=== PATIENT | female | born 1945 | race Caucasian/White ===

== ENCOUNTER 2019-07-04 10:15 | Outpatient (RCR) | payer OTHER, SELFPAY ==
--- NOTE | 2019-06-25 15:26 | PTOPEVAL ---
PHYSICAL THERAPY EVALUATION AND PLAN OF CARE Thank you for referring this patient to [facility]. I recommend aquatic physical therapy 2x/week for 4 weeks followed by a re-assessment to determine further PT needs and functional progress. Please review, sign, date and return this plan of care MYKEL. I agree with and certify that the following plan of care is medically necessary. Referring Physician Date Evaluation Hx Cancer Yes: COLON CA SURGICAL TREATMENT ONLY Evaluation Information Diagnosis s/p spinal fusion Onset 2012 Additional Evaluation Detail sister Iván is here to translate; also used [employer] sheet finisher Hunter #[id number] Subjective Information Ting is here today Query Text:As Reported By Patient/ several years after spinal Family fusion. She continues experience pain symptoms and the physician does not want to do surgery again so they referred her to PT and ordered a back brace. Her current back brace has a thoracic component, but she c/o today that the brace is too heavy. Also states that this brace does not help with pain. She has a smaller brace that is helpful if she has too much pain. reports pain is all the time when performing any standing activities or work; Pain Assessment Self Report Pain Assessment Spine, Lumbar Reported Pain Level 8 Pain Aggravating Factors Walking Other Pain Aggravating Factors cleaning, cooking Additional Pain Comments some numbness in the back but not down legs Cervical and Lumbar ROM Cervical ROM Cervical Flexion (0-60) 55 Query Text:Active in Degrees Cervical Rotation Right (0-90) 60 Query Text:Active in Degrees Cervical Rotation Left (0-90) 60 Query Text:Active in Degrees Cervical ROM Comments reports neck pain; grabs her upper trapezius when discussing pain; Lumbar ROM Lumbar Flexion (0-90) 30 Query Text:Active in Degrees Lumbar Flexion Active Ankle Query Text:Hands to: Lumbar Comments more flexion through thoracic spoine that lumbar spine ( lumbar spine f
--- NOTE | 2019-07-09 08:15 | PCPTNOTE ---
Patient called & cancelled scheduled appointments keeping re-eval on 07/23/2019 due to COVID-19.
--- NOTE | 2019-07-22 09:31 | PCPTNOTE ---
Patient called & cancelled scheduled appointment on 07/23/2019 due to COVID-19 precautions. She is called to re-schedule at a later date.
--- NOTE | 2019-09-05 11:02 | PCPTNOTE ---
PHYSICAL THERAPY DISCHARGE NOTE Patient:Ting Krishnamurthy Date of :1945 Due to COVID-19 precautions, patient has not returned for any further treatments since 07/04/2019, therefore she will be discharged at this time. Patient?s initial visit was on 06/25/2019. We will be happy to work with Ting again in the future when she is ready to return to physical therapy. The goals have not been assessed. Thank you for referring this patient to [facility]. Please review, sign, date and return this discharge summary MYKEL. I have been updated about the patient's current status and I agree with discharge from the above service at this time. Referring Physician Date
== END 2019-09-06 08:30 | disposition home or self-care (01) ==
LOC: ANHPT 10:15
PROVIDERS: PCP Emergency Medicine
DX: Z47.89 Encounter for other orthopedic aftercare (principal); Z98.1 Arthrodesis status
CPT/HCPCS: 97110; 97163

== ENCOUNTER 2020-03-09 13:00 | Outpatient (RCR) | payer OTHER, SELFPAY ==
--- NOTE | 2020-02-07 13:39 | PTOPEVAL ---
PHYSICAL THERAPY EVALUATION Thank you for referring Ting Rodriguez to [facility].? The patient is scheduled to be seen for aquatic therapy? 2x/week for 4 weeks. Please review, sign, date and return this plan of care MYKEL. I agree with and certify that the following plan of care is medically necessary. Referring Physician Date Attending Provider: Dr. Aron Chin *PT Outpatient Evaluation Start: 02/07/20 12:31 Freq: Status: Active Protocol: Document 02/07/20 12:38 MLV (Rec: 02/07/20 13:27 MLV [id number]) Assessment Status Evaluation Evaluation Information Problem Diagnosis lumbar fusion with radiculopathy Onset 1 year ago Cause no new injury Additional Evaluation Detail The patient has been wearing a back brace for a year in attempt to decrease pain some. Patient feels the water therapy and massage will help her pain. Subjective Information Patient reports having back Query Text:As Reported By Patient/ surgery/fusion 14 years ago. Family The patient continued to have pain but has gotten bad enough that it greatly affects normal activity tolerance such as housework and outdoor yardwork. Previous Treatments Previous Treatments For This Problem doing pool therapy but stopped due to COVID Pain Assessment Timing of Pain Assessment Timing of Pain Assessment Pre-Treatment Pain Scale Pain Scale Used Numeric (1 - 10) Self Report Pain Assessment Lower Back Reported Pain Level 0 Radicular Pain Location left hip Pain Frequency Chronic Greatest Pain Intensity 10 Pain Aggravating Factors Exercise/Activity,Walking, Weight Bearing/Standing Additional Pain Comments oswestry score is 50% disability score Pain Score Pain Score 0: Self Report Interventions Used Pain Relief Interventions Used By Heat,Inactivity/Rest,Lying Patient Supine,Medication Other Alleviating Interventions diclofenac cream Cervical and Lumbar ROM Lumbar ROM Reason Not Measured WFL/Left,WFL/Right Upper Extremity Range of Motion General Upper Extremity Range of Motion Reason Not Measured WFL/Left,WFL/Right Lower Extremity Range of Motion General Lower Extremity Range of Motion Reason Not Measured WFL/Left,WFL/Right Cervical and Lumbar Muscle Testing Luz
--- NOTE | 2020-02-27 14:12 | PCPTNOTE ---
Patient called & cancelled scheduled appointment this date, unable to understand reasoning.
--- NOTE | 2020-03-09 13:42 | PTOPEVAL ---
PHYSICAL THERAPY DISCHARGE SUMMARY Thank you for referring Ting Rodriguez to [facility].? The patient completed 6 visits of therapy for the dx of LBP after lumbar fusion. The patient has peaked with skilled PT needs and discharged this date. Please review, sign, date and return this plan of care MYKEL. I agree with and certify that the following plan of care is medically necessary. Referring Physician Date Attending Provider: Dr. Aron Chin *PT Outpatient Discharge Start: 02/07/20 12:31 Freq: Status: Discharge Protocol: Document 03/09/20 13:00 MLV (Rec: 03/09/20 13:42 MLV [email or web address]) Therapy Assessment Status Discharge Subjective The patient reports minimal change in pain with activity. Patient plans to return to the gym for the pool once it is safer to be out. Pain Assessment Pain Scale Pain Scale Used Numeric (1 - 10) Self Report Pain Assessment Lower Back Reported Pain Level 6 Pain Description Aching,Dull Pain Frequency Chronic Greatest Pain Intensity 10 Pain Aggravating Factors Walking,Weight Bearing/ Standing Other Pain Aggravating Factors housework, cooking Pain Behaviors Guarding,Limping,Moaning Pain Score Pain Score 6: Self Report Interventions Used Interventions Used By Clinicians Education,Exercise Pain Relief Interventions Used By Exercise,Heat,Inactivity/Rest Patient Cervical and Lumbar ROM Lumbar ROM Reason Not Measured WFL/Left,WFL/Right Cervical and Lumbar Muscle Testing Lumbar Strength Lumbar Functional Strength Comments patient is able to tolerate red tband trunk and hip exercises without increased pain Lower Extremity Muscle Strength Testing General Lower Extremity Strength Reason Not Measured WFL/Left,WFL/Right Muscle Length Testing Muscle Length Testing Left Hamstring Length 75 Query Text:(90 - 90 Position) Right Hamstring Length 80 Query Text:(90 - 90 Position) Muscle Length Testing Comments hip IR maite. 15 degrees Gait Assessment Gait Pattern Assessment Other Gait Observations base of support with gait improved approx 25%, and patient arrived to therapy without her TLSO brace on. 2 Minute Walk Total Distance Walked (feet) 270 2 Minute Walk Gait Speed Score (feet/ 2.25 second) General Exercise General Exercises Exercise Description dispensed and completed land Query Text:Record Sets, Reps, exercises with red tband as Resistance, and Position follows: 10 reps for sitting clamshell, thoracic rows,
== END 2020-03-10 11:10 | disposition home or self-care (01) ==
LOC: ANHPT 13:00
PROVIDERS: PCP Internal Medicine
DX: M54.16 Radiculopathy, lumbar region (principal); Z98.1 Arthrodesis status
CPT/HCPCS: 97110; 97113; 97162

== ENCOUNTER 2020-11-28 17:02 | Emergency (ER) | payer OTHER, SELFPAY ==
--- NOTE | ~2020-11-28 | CT_ITS ---
EXAMINATION: CT cervical spine wo con DATE: 11/28/2020 17:27 INDICATION: Syncopal episode with head injury TECHNIQUE: Computed tomography (CT) of the cervical spine was performed without intravenous contrast. Automated exposure control and iterative reconstruction technique were employed. The dose-length pro duct was 151.34 mGy-cm. COMPARISON: Cervical spine radiographs dated 04/30/2019 FINDINGS: Unchanged mild reversal of the normal cervical lordosis. Also unchanged is 1-2 mm retrolisthesis C5 o n C6 and C6 on C7. Vertebral body heights are normal. No fracture. Moderate disc height loss with sev ere uncovertebral osteoarthritis at C3-C4, C4-C5 and C5-C6. Mild disc height loss with additional sev ere uncovertebral osteoarthritis at C6-C7. Disc bulges or posterior disc osteophyte complexes at each of these levels result in multilevel mild central canal stenosis. Severe facet osteoarthritis on the right at C7-T1. Otherwise mild to moderate multilevel bilateral cervical facet osteoarthritis. Multi level mild bilateral cervical neural foraminal stenosis. Multinodular goiter. Cervical soft tissues a re otherwise unremarkable. IMPRESSION: 1. Moderate cervical spondylosis. No acute osseous abnormality. Reviewed, dictated and finalized at location A.
--- NOTE | ~2020-11-28 | CT_ITS ---
EXAMINATION: CTA chest PE protocol DATE: 11/28/2020 20:37 INDICATION: Syncope. TECHNIQUE: Computed tomography (CT) pulmonary angiogram of the chest was performed with 100 mL Omnipa que-350 intravenous contrast. Additional 3D reconstructions utilizing coronal maximum intensity proje ction (MIP) were performed. Automated exposure control and iterative reconstruction technique were em ployed. The dose-length product was 234.18 mGy-cm. COMPARISON: None FINDINGS: Excellent contrast opacification of the pulmonary arteries. There is mild streak artifact from dense contrast in the superior vena cava and right atrium. Mild scattered respiratory motion artifact which does not significantly limit evaluation. No pulmonary embolism. No interval change in a pattern of m ild mosaic attenuation in the dependent lungs with groundglass opacity likely related to expiratory p hase of imaging with scattered regions of more lucent air trapping consistent with small airway disea se. No pneumonia, pulmonary edema, pleural effusion or pneumothorax. Heart size is normal. No pericar dial effusion. Thoracic aorta is normal in caliber with no dissection. Goiter. No pathologically enla rged thoracic lymphadenopathy. Visualized upper abdomen is unremarkable. Mild thoracic spondylosis. IMPRESSION: 1. No pulmonary embolism or other acute cardiopulmonary disease. 2. Goiter. Reviewed, dictated and finalized at location A.
--- NOTE | ~2020-11-28 | CT_ITS ---
EXAMINATION: CT brain wo con DATE: 11/28/2020 17:27 INDICATION: Syncope TECHNIQUE: Computed tomography (CT) of the head was performed without intravenous contrast. Sagittal and coronal reconstructions were performed. The mA was adjusted according to patient size. Iterative reconstruction technique was employed. The dose-length product was 605.33 mGy-cm. COMPARISON: None FINDINGS: Soft tissue swelling with subcutaneous hematoma in the right malar region. No fracture. No acute intr acranial hemorrhage, acute infarction or abnormal extra axial fluid collection. Ventricles are normal and symmetric. No mass/mass effect. Changes of bilateral intraocular lens replacement. The orbits an d mastoid air cells are normal. Mild scattered mucosal thickening in the anterior nasal sinuses. IMPRESSION: 1. Right malar subcutaneous hematoma. No fracture or acute intracranial process. Reviewed, dictated and finalized at location A. IMPRESSION: 1. Right malar subcutaneous hematoma. No fracture or acute intracranial process .
--- NOTE | 2020-11-28 17:12 | ECG_ITS ---
Measurements Intervals [place] Rate: 68 P: 48 NM: 199 QRS: -1 QRSD: 85 T: 27 QT: 395 QTc: 420 Interpretive Statements SINUS RHYTHM WITH SINUS ARRHYTHMIA LOW QRS VOLTAGE IN PRECORDIAL LEADS BASELINE ARTIFACT- II, III, AVR, AVF, V3-V6 BORDERLINE ECG Electronically Signed On 11-28-2020 20:14:37 CDT by Miguel Domínguez D.O.
[2020-11-28 17:16] VITALS: BP 130/58; PULSE 65; RESP 18; TEMP 37.2; O2SAT 95
[2020-11-28 17:19] VITALS: PULSE 61
[2020-11-28 18:03] LABS: Basophils Percent Auto 0.2 % (0.2-1.2); Hematocrit 35.7 % (37.0-47.0); Hemoglobin 11.4 g/dL (12.0-15.0); Immature Granulocyte Absolute 0.08 K/mm3 (0.00-0.031); Immature Granulocyte Percent A 0.7 % (0-0.5); Lymphocytes Absolute Auto 0.92 K/mm3 (0.9-3.2); Lymphocytes Percent Auto 7.6 % (18.3-44.2); Mean Corpuscular HGB Conc 31.9 g/dl (32-36); Mean Corpuscular Hemoglobin 29.5 pg (26-34); Mean Corpuscular Volume 92.2 fl (80-100); Mean Platelet Volume 8.2 fl (7.4-10.4); Monocytes Absolute Auto 0.5 K/mm3 (0.1-0.6); Monocytes Percent Auto 4.2 % (2.6-8.5); Neutrophils Absolute Auto 10.7 K/mm3 (1.3-6.7); Neutrophils Percent Auto 87.3 % (45.5-73.1); Platelet Count Result 258 k/mm3 (150-375); Red Blood Count 3.87 M/mm3 (4.2-5.4); Red Cell Distribution Width 11.7 % (11.5-14.5); White Blood Count 12.2 K/mm3 (4.5-10.0)
[2020-11-28 18:13] LABS: Anion Gap 7 mmol/L (8-16); Blood Urea Nitrogen 22 mg/dL (7-17); Carbon Dioxide 25 mmol/L (22-30); Chloride 101 mmol/L (98-107); Estimated CRCL calculation 41 ml/min; Estimated Glomerular Filt Rate > 60; Glucose 116 mg/dL (65-110); Potassium 3.9 mmol/L (3.4-5.0); Sodium 133 mmol/L (137-145)
[2020-11-28 19:57] LABS: D Dimer 0.54 ug/mL (<0.48)
[2020-11-28 20:14] LABS: Add Urine Microscopic? YES; Appearance Urine Clear (Clear); Bilirubin Urine Negative (Negative); Blood Urine 2+ (Negative); Color Urine Colorless (Yellow); Glucose Urine UA Negative (Negative); Ketones Urine Negative (Negative); Leukocyte Esterase Ur Negative LEU/UL (Negative); Nitrate Urine Negative (Negative); Protein Urine Negative (Negative); Specific Grav Ur 1.005 (1.001-1.035); Urobilinogen Urine Negative mg/dL (<2.0)
--- NOTE | 2020-11-28 20:20 | ED.DIZZY ---
HPI - Dizziness General Chief Complaint: Syncope Stated Complaint: syncopal Time Seen by Provider: 11/28/20 19:10 History of Present Illness HPI Narrative: Patient presents after 2 syncopal events. Patient was sitting on the couch when she all of a sudden passed out. Patient denied any prodrome such as chest pain, shortness of breath, lightheadedness. She denies any like she passed out until her family woke her up and told her. When the family attempt to stand her up after initial syncopal episode she had another one where she struck the ground and injured her head. Family was concerned because she has never done this before so came into the ER for evaluation. Patient reports she has been feeling well over the past couple days denies any fevers, cough, congestion. She currently reports pain on the right side of her face where she struck the ground as well as some mild neck pain. She denies any history of heart failure denies any significant cardiac history Related Data Home Medications Medication Instructions Recorded Confirmed aspirin [Adult Low Dose Aspirin] 81 mg PO DAILY 02/19/19 02/19/19 calcium carbonate-vitamin D3 1 tablet PO DAILY 02/19/19 02/19/19 [Calcium with Vitamin D] simvastatin 40 mg PO HS 02/19/19 02/19/19 Allergies Allergy/AdvReac Type Severity Reaction Status Date / Time No Known Allergies Allergy Verified 11/28/20 17:20 Review of Systems Review of Systems: CONSTITUTIONAL: Denies fever, chills, or sweats. EYES: Denies visual changes, redness, or discharge. ENT: Denies rhinorrhea, congestion, sore throat, or otalgia. CARDIOVASCULAR: Denies chest pain, palpitations, or edema. RESPIRATORY: Denies cough or dyspnea. GASTROINTESTINAL: Denies abdominal pain, nausea, vomiting, or diarrhea. GENITOURINARY: Denies dysuria or hematuria. SKIN: Denies rash or itching. MUSCULOSKELETAL: Denies back pain, joint pain, or myalgia. NEUROLOGIC: Denies numbness, dizziness, or weakness. PSYCHIATRIC: Denies anxiety or depression. All systems reviewed & are unremarkable except as noted in HPI and below PMFSH Past Medical History Medical History Colon cancer Family History Family History Mother Acute myocardial infarction Social History Social History Smoking status: Never smoker Second hand tobacco smoke exposure: No Alcohol intake: current Drinks per week: 1 Substance use: never Substance use type: does not use Gender identity (if verbalized by the patient): Female Spiritual care concerns: No Agree to blood products: Yes Exam Narrative: GENERAL: Well-appearing, well-nourished, and in no acute distress. HEAD: Normocephalic, large area of ecchymoses and edema most predominant on the inferior aspect of the right orbit. EYES: PERRLA and EOMI. ENT: Nares clear, no rhinorrhea or epistaxis. Mucous membranes moist. NECK: Supple. No masses. No JVD no midline neck pain CHEST: Clear to auscultation. No respiratory distress. No wheezes rales or rhonchi HEART: Regular rate and rhythm. No murmur heard. Normal peripheral pulses. ABDOMEN: Soft, nontender, nondistended, normal active bowel sounds. EXTREMITIES: Normal range of motion. No edema. SKIN: Warm, dry, no rash. NEURO: 5 out of 5 strength in all extremities sensation intact to light touch cranial nerves II through XII intact alert and oriented x3. PSYCH: Normal mood and affect. Course Reevaluation(s) Reevaluation #1: Patient has no recurrent episodes is resting comfortably. Results discussed with patient Date: 11/28/20 Time: 21:24 Vital Signs Vital signs: Vital Signs Temperature 37.2 C 11/28/20 17:16 Pulse Rate 65 11/28/20 17:16 Respiratory Rate 18 11/28/20 17:16 Blood Pressure 130/58 L 11/28/20 17:16 Pulse Oximetry 95 11/28/20 17:16 Temperature 37.2 C
[2020-11-28] MEDS: SODIUM CHLORIDE 0.9% IV 1,000 ML 999 ML IV CONT (20:42)
[2020-11-28 20:43] VITALS: BP 142/78; PULSE 74; RESP 16; O2SAT 99
[2020-11-28 21:32] VITALS: BP 131/66; PULSE 66; RESP 14; O2SAT 99
== END 2020-11-28 21:57 | disposition home or self-care (01) ==
PROVIDERS: Emergency Medicine; Emergency Provider Emergency Medicine; PCP Internal Medicine
DX: R55 Syncope and collapse (principal); S00.83XA Contusion of other part of head, initial encounter; Z79.82 Long term (current) use of aspirin; Z85.038 Personal history of other malignant neoplasm of large intestine; M47.812 Spondylosis without myelopathy or radiculopathy, cervical region; E04.9 Nontoxic goiter, unspecified; R94.31 Abnormal electrocardiogram [ECG] [EKG]; W18.39XA Other fall on same level, initial encounter
CPT/HCPCS: 36415; 70450; 71275; 72125; 80048; 81001; 85025; 85380; 93005; 99284; J7030; Q9967

== ENCOUNTER 2021-11-25 14:01 | Outpatient (CLI) | payer OTHER, SELFPAY | END 2021-11-25 14:02 | disposition home or self-care (01) | LOC: ANHAUDASC 14:02 | PROVIDERS: PCP Internal Medicine; Visit Provider Otolaryngology | DX: H93.13 Tinnitus, bilateral (principal) | CPT/HCPCS: 92557; 92567 ==

== ENCOUNTER 2022-01-28 13:15 | Outpatient (RCR) | payer OTHER, SELFPAY ==
--- NOTE | 2022-01-10 14:31 | PTOPEVAL1 ---
Assessment and note entered by Samm López, PT, DPT Evaluation Information Assessment Status Evaluation Diagnosis low back pain Onset 10 years Subjective Information Pt states she had a lumbar fusion surgery 10+ years ago. She states her surgery did not help her pain at all. She states she has difficulty standing up for too long, or walking for too long. Pt states it takes her multiple hours to fall asleep. Pt states she has completed 3 rounds of therapy in the past and has gotten very little relief. She reports radiating pain down her L leg into her toes, and states her toes will cramp up. Pt states she has pain as soon as she stands, she states she can stand no longer than 30 minutes. Reported Pain Level Pain Score 8: Self Report Assessment PT Clinical Summary Severo presents to therapy today with a diagnosis of low back pain. Today she demonstrates an antalgic gait pattern during ambulation. She demonstrates decreased lumbar ROM and LE passive ROM that is limited by reports of pain. She demonstrates significant tenderness to palpation in her L piriformis and has a positive slump test. Skilled physical therapy services are indicated to address the deficits noted above, to manage pain, to improve ROM, and to return to baseline function . Plan of Care Interventions Gait Training,Hot Pack/Cold Pack,Manual Therapy, Neuro Re-education,Patient/Caregiver Educati, Therapeutic Activities,Therapeutic Exercise PT Services Indicated Yes Treatment Frequency and 2x/wk for 4 wks Duration These treatments will address the objective and functional deficits as defined above. The patient will be advanced safely and appropriately in order for the patient to progress towards his/her prior level of function. Additional exercises will be introduced and as well as a comprehensive home exercise program upon discharge, if needed, ?to ensure carryover of functional gains achieved in the clinic. This treatment plan has been reviewed and agreement upon by the patient.
--- NOTE | 2022-02-09 16:03 | PCPTNOTE ---
Patient called & cancelled scheduled re-evaluation for 02/11/22 due to leaving for vacation. She plans to stop by the clinic to reschedule when she returns in about a week.
--- NOTE | 2022-03-14 10:44 | PCPTNOTE ---
Called and left voicemail with patient to follow up. If we do not hear back in a week she will be discharged.
--- NOTE | 2022-03-22 10:47 | PTOPDC ---
Assessment and note entered by Samm López, PT, DPT Evaluation Information Assessment Status Discharge - Pt Not Present Diagnosis low back pain Onset 10 years Subjective Information Patient called & cancelled scheduled re-evaluation for 02/11/22 due to leaving for vacation. Family member of patient states she plans to stop by the clinic to reschedule when she returns in about a week. She was called again 1 week ago to follow up , she has not returned our call. It has been 48 days since she has returned and she will therefor be discharged. Assessment PT Clinical Summary Ting has completed 6 visits of therapy from to 01/30/22. She will be discharged at this time. If she is to return as a later date, she will need a new order.
== END 2022-03-22 13:12 | disposition home or self-care (01) ==
LOC: ANHGOSHPT 13:15
PROVIDERS: PCP Internal Medicine
DX: M54.50 Low back pain, unspecified (principal); M40.15 Other secondary kyphosis, thoracolumbar region
CPT/HCPCS: 97035; 97110; 97112; 97140; 97161; 97530